=== PATIENT | male | born 2000 | race Caucasian/White ===

== ENCOUNTER 2020-02-04 03:25 | Inpatient (IN) | payer MEDICAID ==
[~2020-02-04] VITALS: Ht 185.4 cm; Wt 106.6 kg
[2020-02-04 04:47] LABS: BASOPHILS % (AUTO) 0.6 % (0.0-2.0); EOSINOPHILS % (AUTO) 3.2 % (1.0-6.0); HEMATOCRIT 41.9 % (41-53); LYMPHOCYTES # (AUTO) 2.3 K/uL (1.0-4.8); LYMPHOCYTES % (AUTO) 30.8 % (22.0-44.0); MEAN CORPUSCULAR HEMOGLOBIN 29.4 pg (26.0-34.0); MEAN CORPUSCULAR HGB CONC 33.4 G/dL (31.0-37.0); MEAN CORPUSCULAR VOLUME 88 fL (80-100); MONOCYTES # (AUTO) 0.4 K/uL (0.1-1.0); MONOCYTES % (AUTO) 5.7 % (2.0-9.0); NEUTROPHILS # (AUTO) 4.4 K/uL (1.8-7.7); NEUTROPHILS % (AUTO) 59.7 % (40.0-70.0); PLATELET COUNT (AUTO) 202 K/uL (150-450); RED BLOOD CELL COUNT(AUTO) 4.75 MIL/uL (4.50-5.90); RED CELL DISTRIBUTION WIDTH 14.3 % (11.5-14.5)
[2020-02-04 04:55] LABS: ANION GAP 3 mmol/L (8-16); CALCIUM, TOTAL 9.8 mg/dL (8.8-10.5); CARBON DIOXIDE 31 mmol/L (22-29); CHLORIDE 100 mmol/L (98-107); CREATININE 0.95 mg/dL (0.60-1.30); GLOMERULAR FILTR. RATE CALC > 60 mL/min (>60); GLUCOSE,RANDOM 93 mg/dL (70-110); POTASSIUM 3.8 mmol/L (3.5-5.1); SODIUM SERUM 134 mmol/L (136-145); UREA NITROGEN, BLOOD 10 mg/dL (7-18)
[2020-02-04 05:01] LABS: ALANINE AMINOTRANSFERASE 39 U/L (12-78); ALBUMIN 4.2 g/dL (3.4-5.0); ALKALINE PHOSPHATASE 48 U/L (46-116); ASPARTATE AMINOTRANSFERASE 25 U/L (15-37); BILIRUBIN,TOTAL 0.2 mg/dL (0.1-1.0); TOTAL PROTEIN, SERUM 7.5 g/dL (6.4-8.2)
[2020-02-04] MEDS ORDERED: LORazepam 2 MG TABLET PO PRN (05:45)
[2020-02-04] MEDS ORDERED: HALOPERIDOL 5 MG TABLET PO PRN (05:45)
[2020-02-04 08:51] VITALS: BP 135/84
[2020-02-04] MEDS ORDERED: INFLUENZA VIRUS VACCINE QVS 2019-20 (3YR+)/PF 60 MCG/0.5 ML SYRINGE IM ONE (13:30)
[2020-02-04] MEDS: FLUoxetine HCL 20 MG CAPSULE PO SCH (13:48)
[2020-02-04 16:36] VITALS: BP 129/76
[2020-02-05 08:30] VITALS: BP 141/83
[2020-02-05] MEDS: FLUoxetine HCL 20 MG CAPSULE PO SCH (09:28)
[2020-02-05] MEDS ORDERED: FLUO-191 PO (11:27)
[2020-02-05 16:34] VITALS: BP 135/87
[2020-02-05] MEDS: ZOLPIDEM TARTRATE 10 MG TABLET PO PRN (22:45)
[2020-02-06] MEDS: FLUoxetine HCL 20 MG CAPSULE PO SCH (09:08)
[2020-02-06 15:15] VITALS: BP 122/79
[2020-02-06 18:58] VITALS: BP 128/75
[2020-02-06] MEDS: ZOLPIDEM TARTRATE 10 MG TABLET PO PRN (20:06)
[2020-02-07] MEDS: FLUoxetine HCL 20 MG CAPSULE PO SCH (08:11)
[2020-02-07 11:17] VITALS: BP 126/77
[2020-02-07 16:35] VITALS: BP 133/93
[2020-02-07] MEDS: ZOLPIDEM TARTRATE 10 MG TABLET PO PRN (20:42)
[2020-02-08 02:45] VITALS: BP 114/87
[2020-02-08] MEDS: FLUoxetine HCL 20 MG CAPSULE PO SCH (08:54)
[2020-02-08 09:25] VITALS: BP 138/79
[2020-02-08 16:00] VITALS: BP 133/79
[2020-02-09] MEDS: FLUoxetine HCL 20 MG CAPSULE PO SCH (08:02)
[2020-02-09 08:30] VITALS: BP 144/80
[2020-02-09 20:39] VITALS: BP 128/77
[2020-02-09] MEDS: ZOLPIDEM TARTRATE 10 MG TABLET PO PRN (23:41)
[2020-02-10] MEDS: FLUoxetine HCL 20 MG CAPSULE PO SCH (08:20)
[2020-02-10 10:10] VITALS: BP 114/64
[2020-02-10 16:26] VITALS: BP_SYST 119; BP_DIAS 75; BP_DIAS 76
[2020-02-11] MEDS: FLUoxetine HCL 20 MG CAPSULE PO SCH (08:20)
[2020-02-11 12:15] VITALS: BP 112/71
[2020-02-11 18:40] VITALS: BP 124/68
[2020-02-12 00:30] VITALS: BP 150/95
[2020-02-12 08:31] VITALS: BP 109/83
[2020-02-12] MEDS: FLUoxetine HCL 20 MG CAPSULE PO SCH (08:40)
== END 2020-02-12 13:20 | disposition home or self-care (01) | DRG 885 ==
LOC: EMS 03:25 → 3EI 06:04 → 3EC 02-09 19:30
PROVIDERS: ADMIT Psychiatry & Neurology Child & Adolescent Psychiatry; ATTEND Psychiatry & Neurology Child & Adolescent Psychiatry
DX: F33.2 Major depressive disorder, recurrent severe without psychotic features (principal); E87.1 Hypo-osmolality and hyponatremia; R45.851 Suicidal ideations; F10.10 Alcohol abuse, uncomplicated; F19.10 Other psychoactive substance abuse, uncomplicated; F12.90 Cannabis use, unspecified, uncomplicated; F90.9 Attention-deficit hyperactivity disorder, unspecified type; F17.210 Nicotine dependence, cigarettes, uncomplicated; X78.9XXA Intentional self-harm by unspecified sharp object, initial encounter; S61.512A Laceration without foreign body of left wrist, initial encounter; Z71.89 Other specified counseling; Z56.0 Unemployment, unspecified; Y93.89 Activity, other specified; Y92.89 Other specified places as the place of occurrence of the external cause; Y99.8 Other external cause status
CPT/HCPCS: 90686; G0480